=== PATIENT | female | born 1940 ===

== ENCOUNTER 2024-03-01 21:35 | Outpatient (REF) | payer OTHER, SELFPAY | END 2024-03-01 21:36 | disposition home or self-care (01) | LOC: HO.HOSX 21:35 | PROVIDERS: Visit Provider Physician Assistant | DX: Z13.89 Encounter for screening for other disorder (principal) ==

== ENCOUNTER 2024-03-02 14:32 | Outpatient (AMB) | payer OTHER, SELFPAY ==
--- NOTE | 2024-03-02 14:43 | MHC.OFFVIS ---
Vital Signs 03/02/24 14:48 Height 5 ft 1 in Weight 150 lb BMI 28.3 Intake Visit Reasons: New Pt - Left shoulder pain Intake Note: Torie an 83 year old female who presents today with her daughter for a new patient evaluation of left shoulder pain. Patient reports bilateral shoulder with her right shoulder being the worse. Limited ROM. She is requesting to have a cortisone injection. Hx of fracture in her right arm. Limited ROM. Hx of right shoulder cortisone injections that provided her relief. Allergies penicillin V Allergy (Unknown, Verified 03/02/24 15:17) Unknown Penicillins [PENICILLINS] Allergy (Unknown, Unverified 03/02/24 15:17) RASH aspirin [ASPIRIN] Adverse Reaction (Unknown, Unverified 03/02/24 15:17) UPSET STOMACH Medication List - Last Reconciled 03/03/24 by Shaan Gonzalez PA-C cetirizine 10 mg PO DAILY PRN cholecalciferol (vitamin D3) 50 mcg PO DAILY clopidogrel 75 mg PO DAILY dulaglutide (Trulicity) 0.75 mg subcut QWEEK famotidine 40 mg PO BEDTIME fluticasone propion-salmeterol 100-50 mcg/dose (Wixela Inhub) 1 inh inhalation BID hydralazine 25 mg PO TID insulin aspart U-100 (Novolog FlexPen U-100 Insulin aspart) 5 units subcut TID insulin glargine (Lantus Solostar U-100 Insulin) 10 units subcut QPM mecobalamin (vitamin B12) 1,000 mcg PO DAILY rosuvastatin 10 mg PO DAILY sennosides (senna) 8.6 mg PO BEDTIME sertraline 25 mg PO DAILY torsemide 20 mg PO DAILY HPI HPI New Pt - Left shoulder pain: Details: 83-year-old female who presents to the office today with her daughter for an evaluation of right shoulder pain. She states she has pain and limited ROM in her bilateral shoulder that is worse on her right shoulder. She had a right shoulder injection in the past which provided her relief. She has a history of right arm fracture and diabetes. Her sugar levels are well controlled. [facility] Social History (Updated 03/02/24 @ 14:48 by ALL [place]) Patient Tobacco Use Status: Never used Tobacco Current occupational status: retired Review of Systems Const All systems reviewed & are unremarkable except as noted in HPI and below Physical Exam Vital Signs: BMI result Body Mass Index 28.3 Const General: cooperative, healthy appearing, comfortable, no acute distress, well developed and alert Orientation/consciousness: patient oriented x3 HEENT Head: Yes normal to inspection, Yes normocephalic and Yes atraumatic Eyes General: appearance normal, both eyes and all related structures Resp Effort & Inspection: normal respiratory effort and able to speak in complete sentences Cardio Rate: regular rate Peripheral pulses: Peripheral pulses 2+ throughout GI Palpation (GI): Soft to palpation Skin Lesions: no lesions Rashes: no rashes Neuro General: patient oriented x3 Extrem Other: Bilateral shoulder: Normal to inspection. Tenderness over the bicipital groove and along the deltoid region of the shoulder. Forward flexion to 175, external rotation to 90, internal rotation to S1. 5/5 RTC strength. Negative James and cross body abduction. NVI. Office Procedures Joint Injection/Aspiration Joint Injection/Aspiration Primary Site: right shoulder Prep: site was prepped using aseptic technique, ethochloride spray was applied and injection warnings given Injected: 40 mg of, DepoMedrol, with 8 mL of, 1% plain lidocaine and in the subcromial space Approach Used: posterolateral Procedure: The patient tolerated the procedure well and there was some relief with the local anesthesia Coding 24626 - Glenohumeral/Tronchanteric Bursa/Intraarticular Procedure code (CPT) selection complete Results Reviewed Results Reviewed: Xrays were obtained in the office today and personally reviewed by me of marco antonio shoulder show mild ac j oa Assessment & Plan Assessment & Plan (1) Right shoulder tendonitis: Code(s): M77.8 - Other enthesopathies, not elsewhere classified Category: Medical Plan We discussed options today, which include steroid injection. The patient did consent to move forward with the right shoulder injection, which was tolerated well. I recommended rest, ice, and elevation and OTC anti-inflammatories as needed for discomfort. We also discussed diabetes and the effect the steroid injection can have on their blood glucose levels; therefore, they will continue to monitor these very closely over the next 72 hours. If there are concerns, they should report to the ED immediately. Orders: Orders XR shoulder LT min 2V 03/02/24 M25.512 - Pain in left shoulder XR shoulder RT min 2V 03/02/24 M25.511 - Pain in right shoulder Patient Instructions: Scribed for Shaan Gonzalez PA-C, by Jr Medina director [employer] medical [employer], on 03/02/2024 at 2:30 PM EST.? I, Shaan Gonzalez PA-C, have personally reviewed and agree with the information entered by the scribe. Coding Level of Care Code New Pt Level 3 (21015) Diagnoses Right shoulder tendonitis M77.8 CPT Codes Coding - Joint 7: 33169 - Glenohumeral/Tronchanteric Bursa/Intraarticular ([id number])
[2024-03-02 14:48] VITALS: BMI 28.3
== END 2024-03-02 16:18 | disposition home or self-care (01) ==
PROVIDERS: PCP Student in an Organized Health Care Education/Training Program; Visit Provider Physician Assistant
DX: M77.8 Other enthesopathies, not elsewhere classified (principal)
CPT/HCPCS: 20610; 99203

== ENCOUNTER 2024-03-02 15:10 | Outpatient (REF) | payer OTHER, SELFPAY ==
--- NOTE | ~2024-03-02 | XR_ITS ---
EXAMINATION: XR SHOULDER, LEFT CLINICAL INFORMATION: M25.512 - Pain in left shoulder COMPARISON: No prior imaging available at the time of comparison TECHNIQUE: Two views of the shoulder. FINDINGS: No acute fracture or dislocation. Moderate osteoporosis of the shoulder with loss of glenohumeral joint space and acromioclavicular osteophytes. There is mineralization in the acromioclavicular joint which can be seen in the setting of hydroxyapatite deposition disease. Median sternotomy wires. 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 XR/XR shoulder LT min 2V IMPRESSION: 1. Moderate degenerative changes of the shoulder. 2. There is mineralization in the acromioclavicular joint which can be seen in the setting of hydroxyapatite deposition disease. 3. Cardiac silhouette is only partially imaged but may be enlarged, with an ectatic thoracic aorta with atherosclerotic vascular calcification, chest radiographs could be confirmatory if warranted. Electronically signed by: Alejandra Rojas MD 04/06/2024 12:39 PM EDT
--- NOTE | ~2024-03-02 | XR_ITS ---
EXAMINATION: XR SHOULDER, RIGHT CLINICAL INFORMATION: M25.511 - Pain in right shoulder COMPARISON: None TECHNIQUE: Two views of the shoulder. FINDINGS: No acute fracture. Humeral head may be anteriorly subluxed with respect to the glenoid, though may be in part due to positioning, 4 view radiographs of the shoulder could be confirmatory. Moderate osteoarthritis of the shoulder suboptimally evaluated given limited views. Median sternotomy wires. XR/XR shoulder RT min 2V IMPRESSION: 1. Humeral head may be anteriorly subluxed with respect to the glenoid, though may be in part due to positioning, 4 view radiographs of the shoulder could be confirmatory. 2. Moderate osteoarthritis of the shoulder suboptimally evaluated given limited views. Electronically signed by: Alejandra Rojas MD 04/06/2024 12:40 PM EDT
== END 2024-03-02 15:11 | disposition home or self-care (01) ==
LOC: HO.HOSX 15:10
PROVIDERS: Visit Provider Physician Assistant
DX: M25.512 Pain in left shoulder (principal); M25.511 Pain in right shoulder; M77.8 Other enthesopathies, not elsewhere classified; M19.012 Primary osteoarthritis, left shoulder; M19.011 Primary osteoarthritis, right shoulder
CPT/HCPCS: 20610; 73030; 99202; J1010